=== PATIENT | female | born 1955 ===

== ENCOUNTER 2017-07-27 10:08 | Day surgery (SDC) | payer BC ==
[2017-07-27] MEDS ORDERED: Lactated Ringer's 500 ML IV ONE (10:12)
[2017-07-27] MEDS ORDERED: Midazolam 2 MG/2 ML VIAL ONE (10:55)
[2017-07-27] MEDS ORDERED: Propofol 10 mg/ml Inj (20 ML) ONE (10:55)
[2017-07-27 11:20] VITALS: RESP 13; TEMP 97.5
[2017-07-27 11:36] VITALS: BP 125/68; PULSE 63; O2SAT 98
== END 2017-07-27 12:03 | disposition home or self-care (01) ==
LOC: H.ENDO 10:08
PROVIDERS: ATTEND Internal Medicine Gastroenterology
DX: Z12.11 Encounter for screening for malignant neoplasm of colon (principal); K57.30 Diverticulosis of large intestine without perforation or abscess without bleeding; K64.0 First degree hemorrhoids
CPT/HCPCS: 45378; J2001; J2250; J2704; J7120